=== PATIENT | male | born 1955 | race Caucasian/White ===

== ENCOUNTER 2018-01-18 09:00 | Outpatient (CLI) | payer OTHER, SELFPAY | END 2018-01-18 09:20 | PROVIDERS: PCP Emergency Medicine; Visit Provider Emergency Medicine | DX: R69 Illness, unspecified (principal) | CPT/HCPCS: 36415; 83036 ==

== ENCOUNTER 2018-01-18 09:26 | Outpatient (CLI) | payer OTHER, SELFPAY ==
[2018-01-18 11:36] LABS: Hemoglobin A1C 6.5 % (4.5-6.2)
== END 2018-01-18 09:46 ==
PROVIDERS: PCP Emergency Medicine; Visit Provider Emergency Medicine
DX: E11.9 Type 2 diabetes mellitus without complications (principal)
CPT/HCPCS: 36415; 83036

== ENCOUNTER 2018-03-26 13:21 | Outpatient (CLI) | payer OTHER, SELFPAY ==
--- NOTE | 2018-03-26 10:30 | DI.RAD_ITS ---
SYMPTOM/DIAGNOSIS: CHRONIC PAIN, ROTATOR CUFF SYNDROME, M75.100, H/O FALL RIGHT SHOULDER: Five views. No priors. Mild hypertrophic changes are seen at the acromioclavicular joint and at the greater tuberosity. The glenohumeral joint is well maintained. The bones are intact and normally mineralized. The soft tissues are unremarkable. IMPRESSION: Mild degenerative changes about the right shoulder.
== END 2018-03-26 13:41 ==
PROVIDERS: PCP Emergency Medicine; Visit Provider Emergency Medicine
DX: M75.101 Unspecified rotator cuff tear or rupture of right shoulder, not specified as traumatic (principal); G89.29 Other chronic pain; M19.011 Primary osteoarthritis, right shoulder; M25.511 Pain in right shoulder
CPT/HCPCS: 73030

== ENCOUNTER 2018-08-21 08:19 | Outpatient (CLI) | payer OTHER, SELFPAY ==
[2018-08-21 11:05] LABS: Anion Gap 12.3 mmol/L (3-11); BUN 14 mg/dL (7-18); CO2 22.7 mmol/L (21.0-32.0); CREATININE 1.02 mg/dL (0.70-1.30); Calcium 8.9 mg/dL (8.5-10.1); Chloride 101 mmol/L (98-107); Glucose 178 mg/dL (70-100); Potassium 4.5 mmol/L (3.5-5.1); Sodium 136 mmol/L (136-145)
[2018-08-21 11:18] LABS: Hemoglobin A1C 7.5 % (4.5-6.2)
== END 2018-08-21 08:39 ==
PROVIDERS: PCP Emergency Medicine; Visit Provider Emergency Medicine
DX: I10 Essential (primary) hypertension (principal); E11.9 Type 2 diabetes mellitus without complications
CPT/HCPCS: 36415; 80048; 83036

== ENCOUNTER 2018-09-01 09:04 | Emergency (ER) | payer OTHER, SELFPAY ==
[2018-09-01 09:13] VITALS: BP 144/85; PULSE 85; RESP 15; TEMP 36.5; O2SAT 98
[2018-09-01 09:19] LABS: Bilirubin Negative (Negative); Blood Moderate (Negative); Clarity Clear; Glucose 500 mg/dL (Negative); Ketones Negative (Negative); Leukocyte Esterase Negative (Negative); Nitrite Negative (Negative); Urobilinogen 0.2 EU/dL (Up TO 0.2); pH 5.5 (5-8)
[2018-09-01] MEDS: Normal Saline 1,000 ML 200 ML IV (09:20)
[2018-09-01 09:26] LABS: Bacteria Negative HPF (Negative); C & S Indicated? No; Casts Negative LPF (Negative); Crystals Negative HPF (Negative); Epithelial Cells Negative HPF (Negative); Mucus Negative (Negative); WBC Negative HPF (0-5)
--- NOTE | 2018-09-01 09:33 | DI.CT_ITS ---
SYMPTOM/DIAGNOSIS: PAIN RIGHT FLANK, SUDDEN LAST NIGHT, HEmATURIA RENAL COLIC CT: There is moderate right hydronephrosis secondary to a 2 mm stone in the distal right ureter. There is right perinephric stranding. No additional urinary tract calculi are seen. The bladder shows slight wall thickening and trabeculation. The prostate is enlarged. There are small bilateral fatty containing inguinal hernias. The liver shows fatty infiltration. The gallbladder, spleen, pancreas and adrenals are unremarkable. The appendix appears normal. There is no bowel dilatation or inflammatory change. The aorta is normal in diameter. IMPRESSION: Moderate right hydronephrosis secondary to a 2 mm stone in the distal right ureter.
--- NOTE | 2018-09-01 09:44 | W.ED.GENAD ---
Discharge Plan Disposition Patient Disposition: HOME Discharge Details Chief Complaint: FlankPain Clinical Impression: Right distal ureteral calculus, Hyperglycemia Primary Care Provider: Yasir James ED Provider: Anil Law Home Meds and New Rx's Prescriptions: New ondansetron 4 mg film 4 mg PO BID-TID PRN (Reason: nausea and vomiting) Qty: 10 RF: 0 Continued sildenafil [Viagra] 100 mg tablet 100 mg PO PRN Qty: 5 RF: 8 pravastatin [Pravachol] 20 mg tablet 20 mg PO DAILY Qty: 90 RF: 4 metformin 1,000 mg tablet 1,000 mg PO BID Qty: 180 RF: 3 OneTouch Ultra Test strip 1 ea Miscellaneous DAILY Qty: 90 RF: 3 Discharge Instructions Instructions: Kidney Stones (ED), Diabetic Hyperglycemia (ED) Additional Instructions: Please drink plenty of fluid to stay hydrated. Take nausea medicine as prescribed for nausea. Please take ibuprofen over the counter. Take 600mg by mouth every 6 hours as needed for pain. Please follow-up with urology. The CT imaging today noted enlargement of prostate - timely urology consultation is recommended. Call for an appointment. Please contact your primary care physician to arrange follow-up. Return to the ER for any worsening or new concerning symptoms. Referrals: Yasir James, [Primary Care Provider] - Albert Coleman MD [ [facility] STAFF PHYSICIAN] - Medical Decision Making 9:45 -- 62yo m with history of iug-jepqclm-bihruzogp diabetes here with sudden onset right flank pain. Patient with dry mucous membranes and concern for mild dehydration. Urinalysis reviewed and 10-20 RBCs present. Concern for renal stone. Consider other etiologies. Plan to obtain CT of the abdomen and pelvis/ Elevated glucose and urine noted. Plan to check chemistry to assess blood gluc level. Toradol 30 mg IV for pain. IV fluid bolus. 10:58 -- Labs reviewed: Hyperglycemia noted. He has no anion gap acidosis and no ketones in his urine. CT of the abdomen and pelvis interpreted by radiology: IMPRESSION: 1. 1.5 millimeter distal RIGHT ureteral calculus causes dilatation of the RIGHT ureter, and RIGHT collecting system. (2:103; 4:83) The RIGHT kidney is edematous and there is RIGHT perirenal stranding. 2. The prostate is enlarged, greater than 5 cm. Recommend urology consult. Dictated and Authenticated by: Raf Chaudhry MD. Patient was reassessed and was noted to have improvement of pain with Toradol. Plan is to discharge on ibuprofen and with a prescription for Zofran should he have worsening nausea. Patient was encouraged to follow-up with urology. I will have him call to schedule this appointment given the enlargement of prostate noted on CT. Patient was informed of abnormal blood test including hyperglycemia and plans to follow-up with his primary care physician. HPI General Mode of arrival: ambulatory. Date/Time Provider Initiated Documentation: 09/01/18 09:09. Limitations to Documentation: no limitations. Information obtained by: patient. HPI Narrative: 62-year-old male here with acute onset of right flank pain. Pain started last night at 2 AM. Pain is sharp. Pain is currently rated 6/10. Pain is localized to his right posterior lateral flank. No associated dysuria or hematuria. He does have some mild associated nausea. No abdominal pain. Patient has never had similar pain in the past. No recent trauma. Related Data Home Medications Medication Instructions Recorded Confirmed sildenafil 100 mg tablet 100 mg PO PRN #5 tab 01/18/18 09/01/18 metformin 1,000 mg tablet 1,000 mg PO BID #180 tab-cap 05/31/18 09/01/18 blood sugar diagnostic strips #90 strip 08/01/18 08/21/18 pravastatin 20 mg tablet 20 mg PO DAILY #90 tab 08/21/18 09/01/18 ondansetron 4 mg PO BID-TID PRN #10 each 09/01/18 Previous Rx's Medication Instructions Recorded sildenafil 100 mg tablet 100 mg PO PRN #5 tab 01/18/18 metformin 1,000 mg tablet 1,000 mg PO BID #180 tab-cap 05/31/18 blood sugar diagnostic strips #90 strip 08/01/18 pravastatin 20 mg tablet 20 mg PO DAILY #90 tab 08/21/18 ondansetron 4 mg PO BID-TID PRN #10 each 09/01/18 Allergies Allergy/AdvReac Type Severity Reaction Status Date / Time No Known Allergies Allergy Verified 09/01/18 09:18 General Stated Complaint: FlankPain CHANCE: 3 Review of Systems Review of Systems All systems reviewed & are unremarkable except as noted in HPI and below [facility] Surgical History Colonoscopy - IV Sedation (04/01/16) PROCEDURES Family History Mother No problems noted. 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 Pets and animals: Yes Pets and animals: cat(s) Duration: 30-45 minutes/day Frequency: daily Kati/Adventism: Baptism Special kati needs: No Do you feel safe at home: Yes Do you feel safe in your relationship?: Yes Exam Const General: cooperative and no acute distress HENMT Head: normocephalic Mouth: mucous membranes dry Eyes Conjunctivae: normal conjunctivae Sclera: normal sclerae Neck Neck: trachea midline and supple Resp Auscultation: clear to auscultation bilaterally, no rales, no rhonchi and no wheezes Cardio Jugular venous pressure: no JVD Rate: regular rate and not tachycardic Rhythm: regular rhythm GI Palpation: soft, not firm, no guarding, no masses, not rigid and nontender Skin General skin exam: no rashes or lesions noted Neuro General: alert, awake and tone normal Extrem General: no edema Psych Appearance: grossly normal Course Vital Signs Temperature 36.5 C 09/01/18 09:13 Pulse 85 09/01/18 09:13 Respiratory Rate 15 09/01/18 09:13 Blood Pressure 144/85 H 09/01/18 09:13 Pulse Oximetry 98 09/01/18 09:13 Temperature 36.5 C 09/01/18 09:13 Temperature Source Temporal Artery Scan 09/01/18 09:13 Pulse 85 09/01/18 09:13 Respiratory Rate 09/01/18 09:13 Respiratory Effort Non-Labored 09/01/18 09:17 Blood Pressure 144/85 H 09/01/18 09:13 Blood Pressure Position Supine 09/01/18 09:13 Pulse Oximetry 98 09/01/18 09:13 Oxygen Delivery Method Room Air 09/01/18 09:13 Oxygen Flow Rate 0 09/01/18 09:13 Pain Level 9 09/01/18 09:19 Lab/Test Results Lab/Test Results: Laboratory Tests Range/Units 09/01/18 09:20 Urine Color (Yellow) Yellow Urine Clarity Clear Urine pH (5-8) 5.5 Ur Specific [place] (1.005-1.025) 1.020 Urine Protein (Negative) mg/dL Negative Urine Ketones (Negative) mg/dL Negative Urine Blood (Negative) Moderate H Urine Nitrite (Negative) Negative Urine Bilirubin (Negative) Negative Urine Urobilinogen (Up TO 0.2) EU/dL 0.2 Ur Leukocyte Esterase (Negative) Negative Urine RBC (0-2) 10-20 H Urine WBC (0-5) HPF Negative Ur Epithelial Cells (Negative) HPF Negative Urine Crystals (Negative) HPF Negative Urine Bacteria (Negative) HPF Negative Urine Casts (Negative) LPF Negative Urine Mucus (Negative) Negative Ur Culture Indicated? No Urine Glucose (Negative) mg/dL 500 H
[2018-09-01] MEDS: Ketorolac 30 MG/ML VIAL IVP (09:47)
--- NOTE | 2018-09-01 09:47 | ED.GENADUL_ITS ---
Discharge Plan Disposition Patient Disposition: HOME Discharge Details Chief Complaint: FlankPain Clinical Impression: Right distal ureteral calculus, Hyperglycemia Primary Care Provider: Yasir James ED Provider: Anil Law Home Meds and New Rx's Prescriptions: New ondansetron 4 mg film 4 mg PO BID-TID PRN (Reason: nausea and vomiting) Qty: 10 RF: 0 Continued sildenafil [Viagra] 100 mg tablet 100 mg PO PRN Qty: 5 RF: 8 pravastatin [Pravachol] 20 mg tablet 20 mg PO DAILY Qty: 90 RF: 4 metformin 1,000 mg tablet 1,000 mg PO BID Qty: 180 RF: 3 OneTouch Ultra Test strip 1 ea Miscellaneous DAILY Qty: 90 RF: 3 Discharge Instructions Instructions: Kidney Stones (ED), Diabetic Hyperglycemia (ED) Additional Instructions: Please drink plenty of fluid to stay hydrated. Take nausea medicine as prescribed for nausea. Please take ibuprofen over the counter. Take 600mg by mouth every 6 hours as needed for pain. Please follow-up with urology. The CT imaging today noted enlargement of prostate - timely urology consultation is recommended. Call for an appointment. Please contact your primary care physician to arrange follow-up. Return to the ER for any worsening or new concerning symptoms. Referrals: Yasir James, [Primary Care Provider] - Albert Coleman MD [ [facility] STAFF PHYSICIAN] - Medical Decision Making 9:45 -- 62yo m with history of qpm-rvydbdu-cdmubxhbf diabetes here with sudden onset right flank pain. Patient with dry mucous membranes and concern for mild dehydration. Urinalysis reviewed and 10-20 RBCs present. Concern for renal stone. Consider other etiologies. Plan to obtain CT of the abdomen and pelvis/ Elevated glucose and urine noted. Plan to check chemistry to assess blood gluc level. Toradol 30 mg IV for pain. IV fluid bolus. 10:58 -- Labs reviewed: Hyperglycemia noted. He has no anion gap acidosis and no ketones in his urine. CT of the abdomen and pelvis interpreted by radiology: IMPRESSION: 1. 1.5 millimeter distal RIGHT ureteral calculus causes dilatation of the RIGHT ureter, and RIGHT collecting system. (2:103; 4:83) The RIGHT kidney is edematous and there is RIGHT perirenal stranding. 2. The prostate is enlarged, greater than 5 cm. Recommend urology consult. Dictated and Authenticated by: Raf Chaudhry MD. Patient was reassessed and was noted to have improvement of pain with Toradol. Plan is to discharge on ibuprofen and with a prescription for Zofran should he have worsening nausea. Patient was encouraged to follow-up with urology. I will have him call to schedule this appointment given the enlargement of prostate noted on CT. Patient was informed of abnormal blood test including hyperglycemia and plans to follow-up with his primary care physician. HPI General Mode of arrival: ambulatory . Date/Time Provider Initiated Documentation: 09/01/18 09:09 . Limitations to Documentation: no limitations . Information obtained by: patient . HPI Narrative: 62-year-old male here with acute onset of right flank pain. Pain started last night at 2 AM. Pain is sharp. Pain is currently rated 6/10. Pain is localized to his right posterior lateral flank. No associated dysuria or hematuria. He does have some mild associated nausea. No abdominal pain. Patient has never had similar pain in the past. No recent trauma. Related Data Home Medications Medication Instructions Recorded Confirmed sildenafil 100 mg tablet 100 mg PO PRN #5 tab 01/18/18 09/01/18 metformin 1,000 mg tablet 1,000 mg PO BID #180 tab-cap 05/31/18 09/01/18 blood sugar diagnostic strips #90 strip 08/01/18 08/21/18 pravastatin 20 mg tablet 20 mg PO DAILY #90 tab 08/21/18 09/01/18 ondansetron 4 mg PO BID-TID PRN #10 each 09/01/18 Previous Rx's Medication Instructions Recorded sildenafil 100 mg tablet 100 mg PO PRN #5 tab 01/18/18 metformin 1,000 mg tablet 1,000 mg PO BID #180 tab-cap 05/31/18 blood sugar diagnostic strips #90 strip 08/01/18 pravastatin 20 mg tablet 20 mg PO DAILY #90 tab 08/21/18 ondansetron 4 mg PO BID-TID PRN #10 each 09/01/18 Allergies Allergy/AdvReac Type Severity Reaction Status Date / Time No Known Allergies Allergy Verified 09/01/18 09:18 General Stated Complaint: FlankPain CHANCE: 3 Review of Systems Review of Systems All systems reviewed & are unremarkable except as noted in HPI and below [facility] Surgical History Colonoscopy - IV Sedation (04/01/16) PROCEDURES Family History Mother No problems noted. Father Heart disease Brother Diabetes Grandmother Neoplasm Social History Smoking/Tobacco Use Status: Never Alcohol Intake: current Alcohol Intake frequency: a few times a month Drug use: Never Substance use type: does not use current occupation: [employer] Pets and animals: Yes Pets and animals: cat(s) Duration: 30-45 minutes/day Frequency: daily Akti/Buddhist: Scientologist Special kati needs: No Do you feel safe at home: Yes Do you feel safe in your relationship?: Yes Exam Const General: cooperative and no acute distress HENMT Head: normocephalic Mouth: mucous membranes dry Eyes Conjunctivae: normal conjunctivae Sclera: normal sclerae Neck Neck: trachea midline and supple Resp Auscultation: clear to auscultation bilaterally, no rales, no rhonchi and no wheezes Cardio Jugular venous pressure: no JVD Rate: regular rate and not tachycardic Rhythm: regular rhythm GI Palpation: soft, not firm, no guarding, no masses, not rigid and nontender Skin General skin exam: no rashes or lesions noted Neuro General: alert, awake and tone normal Extrem General: no edema Psych Appearance: grossly normal Course Vital Signs Temperature 36.5 C 09/01/18 09:13 Pulse 85 09/01/18 09:13 Respiratory Rate 15 09/01/18 09:13 Blood Pressure 144/85 H 09/01/18 09:13 Pulse Oximetry 98 09/01/18 09:13 Temperature 36.5 C 09/01/18 09:13 Temperature Source Temporal Artery Scan 09/01/18 09:13 Pulse 85 09/01/18 09:13 Respiratory Rate 09/01/18 09:13 Respiratory Effort Non-Labored 09/01/18 09:17 Blood Pressure 144/85 H 09/01/18 09:13 Blood Pressure Position Supine 09/01/18 09:13 Pulse Oximetry 98 09/01/18 09:13 Oxygen Delivery Method Room Air 09/01/18 09:13 Oxygen Flow Rate 0 09/01/18 09:13 Pain Level 9 09/01/18 09:19 Lab/Test Results Lab/Test Results: Laboratory Tests Range/Units 09/01/18 09:20 Urine Color (Yellow) Yellow Urine Clarity Clear Urine pH (5-8) 5.5 Ur Specific [place] (1.005-1.025) 1.020 Urine Protein (Negative) mg/dL Negative Urine Ketones (Negative) mg/dL Negative Urine Blood (Negative) Moderate H Urine Nitrite (Negative) Negative Urine Bilirubin (Negative) Negative Urine Urobilinogen (Up TO 0.2) EU/dL 0.2 Ur Leukocyte Esterase (Negative) Negative Urine RBC (0-2) 10-20 H Urine WBC (0-5) HPF Negative Ur Epithelial Cells (Negative) HPF Negative Urine Crystals (Negative) HPF Negative Urine Bacteria (Negative) HPF Negative Urine Casts (Negative) LPF Negative Urine Mucus (Negative) Negative Ur Culture Indicated? No Urine Glucose (Negative) mg/dL 500 H
[2018-09-01 09:53] LABS: Absolute Basophil Count 0.01 k/cumm (0.0-0.2); Absolute Eosinophil Count 0.03 k/cumm (0.0-0.7); Absolute Lymphocyte Count 1.14 k/cumm (1.2-3.4); Absolute Monocyte Count 0.52 k/cumm (0.11-0.7); Absolute Neutrophil Count 4.65 k/cumm (1.2-6.7); Basophils % 0.2; Eosinophils % 0.5; HCT 39.7 % (40.0-50.0); HGB 13.4 g/dL (13.5-17.5); Mean Corp. HGB Concentration 33.8 g/dL (32.0-36.0); Mean Corpuscular Hemoglobin 28.9 pg (27.0-33.0); Mean Corpuscular Volume 85.6 fL (80-95); Mean Platelet Volume 11.8 fL (8.0-11.0); Monocytes % 8.2; Neutrophils % 73.1; Platelet Count 151 x1000/uL (130-400); RBC 4.64 m/cumm (4.50-6.00); RBC Distribution Width 12.6 % (11.8-14.1); White Blood Cell Count 6.35 k/cumm (4.4-10.8)
[2018-09-01 10:06] LABS: ALT 35 U/L (12-78); AST 14 U/L (15-37); Albumin 3.8 g/dL (3.4-5.0); Alkaline Phosphatase 69 U/L (46-116); Anion Gap 11.7 mmol/L (3-11); BUN 16 mg/dL (7-18); Bilirubin, Total 1.4 mg/dL (0.2-1.0); CO2 22.3 mmol/L (21.0-32.0); CREATININE 1.26 mg/dL (0.70-1.30); Chloride 100 mmol/L (98-107); Estimated GFR 58.38 (mL/min/1.73m2); Glucose 206 mg/dL (70-100); Potassium 4.6 mmol/L (3.5-5.1); Sodium 134 mmol/L (136-145); Total Protein 7.2 g/dL (6.4-8.2)
--- NOTE | 2018-09-01 10:55 | DI.VRAD_ITS ---
EXAM: CT Abdomen and Pelvis Without Contrast EXAM DATE/TIME: 09/01/2018 9:34 AM CLINICAL HISTORY: 62 years old, male; Signs and symptoms; Other: Pain right flank; Sudden onset last night; Hematuria TECHNIQUE: Imaging protocol: Axial computed tomography images of the abdomen and pelvis without contrast. Coronal and sagittal reformatted images were created and reviewed. Radiation optimization: All CT scans at this facility use at least one of these dose optimization techniques: automated exposure control; mA and/or kV adjustment per patient size (includes targeted exams where dose is matched to clinical indication); or iterative reconstruction. COMPARISON: No relevant prior studies available. FINDINGS: ABDOMEN: Liver: Hepatic steatosis Gallbladder and bile ducts: Normal. No calcified stones. No ductal dilation. Pancreas: Normal. No ductal dilation. Spleen: Normal. No splenomegaly. Adrenals: Normal. No mass. Kidneys and ureters: 1.5 millimeter distal RIGHT ureteral calculus causes dilatation of the RIGHT ureter, and RIGHT collecting system. (2:103; 4:83) The RIGHT kidney is edematous and there is RIGHT perirenal stranding. Stomach and bowel: Normal. No obstruction. No mucosal thickening. Appendix: Normal appendix PELVIS: Bladder: Unremarkable as visualized. Reproductive: The prostate is enlarged, greater than 5 cm. ABDOMEN and PELVIS: Intraperitoneal space: Normal. No free air. No significant fluid collection. 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 Soft tissues: Unremarkable. Vasculature: Normal. No abdominal aortic aneurysm. Lymph nodes: Normal. No enlarged lymph nodes. Other findings: Left pararenal cyst IMPRESSION: 1. 1.5 millimeter distal RIGHT ureteral calculus causes dilatation of the RIGHT ureter, and RIGHT collecting system. (2:103; 4:83) The RIGHT kidney is edematous and there is RIGHT perirenal stranding. 2. The prostate is enlarged, greater than 5 cm. Recommend urology consult. Dictated and Authenticated by: Raf Chaudhry MD. Ordering:MONICO Ma MD
[2018-09-01 11:18] VITALS: BP 118/72; PULSE 80; RESP 15; TEMP 36.6; O2SAT 98
[2018-09-01 11:28] VITALS: BP 118/72; PULSE 80; RESP 15; TEMP 36.6; O2SAT 98
== END 2018-09-01 11:28 | disposition home or self-care (01) ==
PROVIDERS: Emergency Provider Student in an Organized Health Care Education/Training Program; PCP Emergency Medicine
DX: N20.1 Calculus of ureter (principal); E11.65 Type 2 diabetes mellitus with hyperglycemia; Z79.4 Long term (current) use of insulin; N40.0 Benign prostatic hyperplasia without lower urinary tract symptoms
CPT/HCPCS: 80053; 96361; 96374; 99284; 74176; 81003; 81015; 85025; J1885

== ENCOUNTER 2018-09-25 08:06 | Outpatient (CLI) | payer OTHER, SELFPAY ==
[2018-09-26 08:59] LABS: PSA, Screening 0.8 ng/ml (0-4.5)
== END 2018-09-25 08:26 ==
PROVIDERS: PCP Emergency Medicine; Visit Provider Emergency Medicine
DX: N40.0 Benign prostatic hyperplasia without lower urinary tract symptoms (principal); Z12.5 Encounter for screening for malignant neoplasm of prostate
CPT/HCPCS: 36415; 84153

== ENCOUNTER 2018-09-25 08:17 | Outpatient (CLI) | payer OTHER, SELFPAY ==
--- NOTE | 2018-09-25 14:00 | DI.US_ITS ---
SYMPTOMS/DIAGNOSIS: RIGHT KIDNEY STONE, N20.0 RENAL ULTRASOUND: Recent CT of 09/01/18 showed an obstructing stone of the distal right ureter with resultant right hydronephrosis. No hydronephrosis identified on today's examination on either side. Urinary bladder is unremarkable in appearance. No evidence of nephrolithiasis. Small peripelvic cysts are noted in the left kidney. Urinary bladder is unremarkable in appearance with prevoid and postvoid urinary bladder volume measurements 221 cc and 23 cc, respectively. CONCLUSION: Negative renal ultrasound. Resolution of previously noted right hydronephrosis.
== END 2018-09-25 08:37 ==
PROVIDERS: PCP Emergency Medicine; Visit Provider Emergency Medicine
DX: N20.0 Calculus of kidney (principal)
CPT/HCPCS: 76770

== ENCOUNTER 2018-12-21 07:00 | Outpatient (CLI) | payer OTHER, SELFPAY ==
[2018-12-21 10:53] LABS: Hemoglobin A1C 7.6 % (4.5-6.2)
== END 2018-12-21 07:20 ==
PROVIDERS: PCP Emergency Medicine; Visit Provider Emergency Medicine
DX: E11.9 Type 2 diabetes mellitus without complications (principal)
CPT/HCPCS: 36415; 83036

== ENCOUNTER 2019-10-09 03:58 | Outpatient (CLI) | payer OTHER, SELFPAY ==
[2019-10-09 07:58] LABS: Hemoglobin A1C 7.6 % (3.8-5.6)
[2019-10-09 08:36] LABS: Anion Gap 12.9 mmol/L (3-11); BUN 13 mg/dL (7-18); CO2 23.1 mmol/L (21.0-32.0); CREATININE 1.14 mg/dL (0.70-1.30); Calcium 8.8 mg/dL (8.5-10.1); Chloride 101 mmol/L (98-107); Glucose 191 mg/dL (74-106); Potassium 4.5 mmol/L (3.5-5.1); Sodium 137 mmol/L (136-145)
[2019-10-09 09:28] LABS: Calculated LDL 101 mg/dL (<100); Cholesterol 210 mg/dL (<200); HDL Cholesterol 36 mg/dL (40-60); Triglyceride 365 mg/dL (<150)
== END 2019-10-09 04:18 ==
PROVIDERS: PCP Emergency Medicine; Visit Provider Emergency Medicine
DX: E78.5 Hyperlipidemia, unspecified (principal); I10 Essential (primary) hypertension; E11.9 Type 2 diabetes mellitus without complications
CPT/HCPCS: 36415; 80048; 80061; 83036

== ENCOUNTER 2020-01-02 10:22 | Outpatient (CLI) | payer OTHER, SELFPAY ==
--- NOTE | 2020-01-02 09:15 | DI.RAD_ITS ---
EXAM: XR KNEE RT 3V AP,LAT,RUPERT CLINICAL HISTORY: eval R knee medial pain. TECHNIQUE: 2D digital imaging was performed. COMPARISON: CR CHEST 2 VIEWS PA,LAT from 07/11/2012 FINDINGS: BONES: No acute fracture is present. No bony destructive lesion is seen. JOINTS: The knee is normally aligned. No joint effusion is seen. SOFT TISSUE: Normal. IMPRESSION: Unremarkable radiographs of the right knee. DATA REPOSITORY: RADIATION DOSE DELIVERED:
== END 2020-01-02 10:42 ==
PROVIDERS: PCP Emergency Medicine; Referring Provider Emergency Medicine; Visit Provider Student in an Organized Health Care Education/Training Program
DX: M25.561 Pain in right knee (principal)
CPT/HCPCS: 73562

== ENCOUNTER 2020-01-27 00:40 | Outpatient (CLI) | payer OTHER, SELFPAY ==
--- NOTE | 2020-01-27 14:35 | DI.MRI_ITS ---
EXAM: MR LOWER JOINT RT WO CLINICAL HISTORY: RT KNEE PAIN, INJURY,M25.561 TECHNIQUE: Multiplanar multisequence MRI was performed.. COMPARISON: No exams were available for comparison FINDINGS: MR examination of the knee was performed according to the usual protocol. There is a small knee joint effusion. There is Lopes's cyst measuring up to about 1 x 4 cm in diamet er. No significant bony signal abnormality seen. Medial tibiofemoral joint: The articular cartilage of the femur and tibia appears well maintained. T he meniscus and attachments appear intact. The medial collateral ligament appears intact. No director of category management omedial corner injury seen. Lateral tibiofemoral joint: The articular cartilage of the femur and tibia peers well maintained. Th e meniscus and attachments appear intact except for mildly abnormal signal in the posterior horn of l ateral meniscus.. The lateral collateral ligament complex and posterolateral corner structures appea r intact. Patellofemoral joint and extensor mechanism: The articular cartilage of the patellofemoral joint appe ars intact. The superior and inferior patellar fat pads appear normal with no signal abnormality. The quadriceps tendon and patellar tendon appear intact with no evidence of a tear or significant earle ma. The medial and lateral retinacula appear intact. Cruciate ligaments: Cruciate ligaments and attachments appear normal with no evidence of a tear. The re is small loculated cyst which lies posterior to the femoral attachment of the posterior cruciate l igament, no signal abnormality seen in the posterior cruciate. Tibiofibular joint: No specific abnormality involving the tibiofibular joint. IMPRESSION: Small knee joint effusion, small Lopes's cyst. No evidence of significant internal derangement. DATA REPOSITORY:
== END 2020-01-27 01:00 ==
PROVIDERS: PCP Emergency Medicine; Visit Provider Student in an Organized Health Care Education/Training Program
DX: M25.461 Effusion, right knee (principal); M71.21 Synovial cyst of popliteal space [Baker], right knee
CPT/HCPCS: 73721

== ENCOUNTER 2020-06-26 16:53 | Outpatient (REF) | payer OTHER, SELFPAY ==
[2020-06-26 13:59] LABS: Hemoglobin A1C 7.9 % (<5.7)
[2020-06-26 15:07] LABS: Microalb ug/mg Crea 9.1 ug/mg Cr
[2020-06-26 15:09] LABS: BUN 11 mg/dL (7-18); Calcium 8.6 mg/dL (8.5-10.1); Calculated LDL 119 mg/dL (<100); Chloride 102 mmol/L (98-107); Cholesterol 201 mg/dL (<200); Glucose 209 mg/dL (74-106); HDL Cholesterol 47 mg/dL (40-60); Potassium 4.5 mmol/L (3.5-5.1); Sodium 138 mmol/L (136-145); Triglyceride 177 mg/dL (<150)
== END 2020-06-26 16:54 | disposition home or self-care (01) ==
LOC: LBN 16:53
PROVIDERS: PCP Emergency Medicine; Visit Provider Emergency Medicine
DX: I10 Essential (primary) hypertension (principal); E11.9 Type 2 diabetes mellitus without complications
CPT/HCPCS: 80048; 80061; 82043; 82570; 83036

== ENCOUNTER 2020-06-30 01:19 | Outpatient (CLI) | payer OTHER, SELFPAY ==
--- NOTE | 2020-06-30 06:30 | DI.NM_ITS ---
APPROVED REPORT Exam: Exercise Treadmill Patient Location: Out-Patient Room/Bed: Stress Nurse: Minoo Wolf RN Ordering Provider:SABIHA MEZA, Contact Number: [phone] BMI: 30.68 Baseline Rhythm: Sinus Rhythm Indications: CHEST PAIN, SHORTNESS OF BREATH Medical History Medical History: Chest pain, chronic fatigue syndrome, DM, HLD Cardiac Medications: Pravastatin, Metformin, ASA. Allergies: No known drug allergies Cardiac Risk Factors: Hyperlipidemia, Diabetes (non-insulin), Obesity Previous Cardiac Procedures: None. Pretest Chest Pain Characteristics: No chest pain Exercise History: Sedentary Physical Disabilities: None. Lung Sounds: Clear to auscultation Heart Sounds: Regular Stress Test Details Test: Exercise stress testing was performed using a Gaurav protocol. Nuclear Acquisition: Rest Tc-99m/Stress Tc-99m 1 day Rest Isotope: Tc-99m Sestamibi. Dose: 10.2 Date: 06/30/20 Injection Time: 0930 Stress Isotope: Tc-99m Sestamibi. Dose: 31.5 Date: 06/30/20 Injection Time: 1045 HR Resting HR Supine: 91 bpm Max Heart Rate (APMHR): 158 bpm Resting HR Standin bpm Target HR (85% APMHR): 134 bpm Max HR Achieved: 156 bpm % of APMHR: 98 Recovery HR: 106 bpm HR response to stress: Normal HR response to stress BP Resting BP Supine: 136/88 mmHg Resting BP Standin/86 mmHg Max BP: 188/70 mmHg Recovery BP: 140/78 mmHg BP response to stress: Normal blood pressure response to stress. ECG Resting ECG: Sinus Rhythm Ectopy: None. Stress ECG: Sinus Tachycardia ST Change: No significant ST segment changes noted Arrhythmia: None Recovery ECG: Sinus Tachycardia Recovery ST Change: No significant ST segment changes noted Recovery Arrhythmia: None Clinical Reason for Termination: Dyspnea, Fatigue Stress Symptoms: Dyspnea Exercise duration: 6 min48 sec Highest Stage Reached: Stage 3: 3.4 mph at 14% grade. Exercise capacity: 8.3 METs Rate Pressure Product: [id number] Stress ECG Conclusion 1. The resting electrocardiogram showed borderline left axis deviation 2. Patient exercised on the Gaurav protocol and completed a workload of 8.3 METS, limited by shortness of breath 3. Normal heart rate and blood pressure response to exercise. The patient achieved 98% of predicted heart rate for age 4. Electrocardiographically there was no evidence of myocardial ischemia 5. No dysrhythmias were observed Stress Test Summary STAGE Time (mins) Speed (mph) Grade (%) HR BP SYMPTOMS METS Supine 91 136/88 Standing 94 140/86 1 3 1.7 10 126 152/74 4.6 2 6 2.5 12 145 170/72 7 3 9 3.4 14 SpO2 97% 10.2 1 min recovery 136 188/70 3 min recovery 110 162/74 6 min recovery 106 140/78 MPI Conclusion Normal myocardial perfusion without evidence of ischemia or prior infarction. EF reported to be 44% Radiologist Interpretation Radiologist Interpretation by: Darius Garcia MD Interpretation Date/Time: 06/30/2020 13:00:28
== END 2020-06-30 01:39 ==
PROVIDERS: PCP Emergency Medicine; Visit Provider Emergency Medicine
DX: R07.9 Chest pain, unspecified (principal); R06.02 Shortness of breath; E78.5 Hyperlipidemia, unspecified; E11.9 Type 2 diabetes mellitus without complications; E66.9 Obesity, unspecified
CPT/HCPCS: 78452; 93017

== ENCOUNTER 2021-01-15 07:49 | Emergency (ER) | payer OTHER, SELFPAY ==
[2021-01-15 08:03] VITALS: BP 153/86; PULSE 79; RESP 18; TEMP 36.8; O2SAT 99
--- NOTE | 2021-01-15 08:27 | ED.GENADUL_ITS ---
Discharge Plan Disposition Patient Disposition: HOME Condition: Stable Discharge Details Clinical Impression: Ureterolithiasis Primary Care Provider: Jose Mccray ED Provider: Ivet Sawyer Home Meds and New Rx's Prescriptions: New oxycodone 5 mg capsule 5 mg PO Q8H PRNQty: 7 RF: 0 ondansetron HCl [Zofran] 4 mg tablet 4 mg PO Q8H PRNQty: 10 RF: 0 tamsulosin [Flomax] 0.4 mg capsule 0.4 mg PO QHS Qty: 7 RF: 0 Continued pravastatin 40 mg tablet 40 mg PO DAILY Qty: 90 RF: 3 (DME) OneTouch Ultra Test strip 1 ea Miscellaneous DAILY Qty: 90 RF: 3 sildenafil [Viagra] 100 mg tablet 100 mg PO PRN Qty: 5 RF: 8 metformin 1,000 mg tablet 1,000 mg PO BID Qty: 180 RF: 3 Discharge Instructions Additional Instructions: Stay hydrated Take your Flomax as prescribed Oxycodone can make you constipated, take MiraLAX and prune while on this Follow-up with Dr. Coleman urology and strain your urine Follow-up tomorrow Please return with fever, chills, difficulty urinating, burning pain with urination, or with any new or worsening complaints Referrals: Albert Coleman MD [ [facility] STAFF PHYSICIAN] - Medical Decision Making Patient appears well, his pain is much improved after IV Tylenol CT shows 2 small 1 mm stones at UVJ with hydronephrosis, moderate to severe Producing urine, stable vitals and lab, mild hypertension Request discharge home at this time, we will strain his urine Placed on Flomax Zofran Small amount of oxycodone, risk of addiction discussed No evidence of secondary infection Referral to urology supplied Medical Records Medical records reviewed: Yes I reviewed the patient's medical records. Lab Data Lab results reviewed: Yes I reviewed the patient's lab results. HPI General Mode of arrival: ambulatory . Date/Time Provider Initiated Documentation: 01/15/21 08:08 . Limitations to Documentation: no limitations . Information obtained by: patient . HPI Narrative: This 65-year-old gentleman with history of diabetes, hypertension, hyperlipidemia presents with right flank pain for the past 3 days. History of similar pain ureteral lithiasis in the past. Denies any fever or chills denies any dysuria or frequency. Denies any abdominal discomfort. Intermittent nausea without vomiting reportedly. Denies any additional complaints at this time. Denies any exacerbating or alleviating factors. Describes the pain as sharp. Related Data Home Medications Medication Instructions Recorded Confirmed blood sugar diagnostic #90 strip 08/01/18 03/27/20 sildenafil 100 mg tablet 100 mg PO PRN #5 tab 04/09/19 01/15/21 metformin 1,000 mg tablet 1,000 mg PO BID #180 tab-cap 04/23/20 01/15/21 pravastatin 40 mg tablet 40 mg PO DAILY #90 tab 07/24/20 01/15/21 ondansetron HCl [Zofran] 4 mg PO Q8H PRN #10 tab 01/15/21 oxycodone 5 mg PO Q8H PRN #7 cap 01/15/21 tamsulosin [Flomax] 0.4 mg PO QHS #7 cap 01/15/21 Previous Rx's Medication Instructions Recorded blood sugar diagnostic #90 strip 08/01/18 sildenafil 100 mg tablet 100 mg PO PRN #5 tab 04/09/19 metformin 1,000 mg tablet 1,000 mg PO BID #180 tab-cap 04/23/20 pravastatin 40 mg tablet 40 mg PO DAILY #90 tab 07/24/20 ondansetron HCl [Zofran] 4 mg PO Q8H PRN #10 tab 01/15/21 oxycodone 5 mg PO Q8H PRN #7 cap 01/15/21 tamsulosin [Flomax] 0.4 mg PO QHS #7 cap 01/15/21 Allergies Allergy/AdvReac Type Severity Reaction Status Date / Time No Known Allergies Allergy Verified 01/15/21 08:07 General Stated Complaint: Urinary CHANCE: 3 Review of Systems All systems reviewed & are unremarkable except as noted in HPI and below PFSH Medical History (Updated 01/15/21 @ 10:56 by TAMERA Mejia) BPH w urinary obs/LUTS Chest pain normal MPI 08/07 Chronic fatigue syndrome (01/18/12) Diabetes mellitus (07/24/13) Hiatal hernia (02/16/01) Hyperlipidemia (09/24/12) Overweight (09/24/12) Parastomal hernia Rotator cuff syndrome Corticosteroid injection: 04/23/18 Surgical History Colonoscopy - IV Sedation (04/01/16) PROCEDURES [facility] [place] DR. MANUEL; ANKLE SURGERY 07/28 Family History Mother No problems noted. Father Heart disease Brother Diabetes Grandmother Neoplasm COLON Social History Smoking/Tobacco Use Status: Never Smoking risk assessment performed?: Yes Alcohol Intake: current Alcohol Intake frequency: a few times a month Drug use: Never Substance use type: does not use current occupation: [employer] Pets and animals: Yes Pets and animals: cat(s) Duration: 30-45 minutes/day Frequency: daily Kati/Hoahaoism: Pentecostal Special kati needs: No Do you feel safe at home: Yes Do you feel safe in your relationship?: Yes Exam Const General: cooperative, comfortable and no acute distress HENMT Mouth: oral mucosae normal Eyes Pupils: PERRL Resp Effort & Inspection: normal respiratory effort Cardio Rate: regular rate GI Inspection: normal to inspection Other: Nontender abdominal exam right CVA tenderness No abdominal bruit or pulsatile mass Skin General skin exam: no rashes or lesions noted Neuro General: patient alert and patient oriented x3 Course Vital Signs Vital signs: Vital Signs Temperature 36.8 C 01/15/21 08:03 Pulse 79 01/15/21 08:03 Respiratory Rate 18 01/15/21 08:03 Blood Pressure 153/86 H 01/15/21 08:03 Pulse Oximetry 99 01/15/21 08:03 Temperature 36.8 C 01/15/21 08:03 Pulse 79 01/15/21 08:03 Respiratory Rate 18 01/15/21 08:03 Respiratory Effort 01/15/21 08:06 Blood Pressure 153/86 H 01/15/21 08:03 Blood Pressure Position Sitting 01/15/21 08:03 Pulse Oximetry 99 01/15/21 08:03 Oxygen Delivery Method Room Air 01/15/21 08:03 Oxygen Flow Rate 0 01/15/21 08:03 Pain Level 6 01/15/21 08:03
[2021-01-15] MEDS: Normal Saline 1,000 ML 1000 ML IV (08:31)
[2021-01-15 08:37] LABS: Abs Immature Grans 0.02 10^3/uL (0.0-0.06); Absolute Basophil Count 0.02 10^3/uL (0.0-0.2); Absolute Eosinophil Count 0.07 10^3/uL (0.0-0.7); Absolute Lymphocyte Count 1.04 10^3/uL (1.2-3.4); Absolute Monocyte Count 0.53 10^3/uL (0.1-0.8); Absolute Neutrophil Count 4.04 10^3/uL (1.2-6.7); Basophils % 0.3; Eosinophils % 1.2; HCT 40.1 % (40.0-50.0); HGB 12.9 g/dL (13.5-17.5); Immature Grans % 0.3; Lymphocytes % 18.2; MCH 26.8 pg (27.0-33.0); MCHC 32.2 % (32.0-36.0); MCV 83.2 fL (80-95); MPV 11.8 fL (8.0-11.0); Monocytes % 9.3; Neutrophils % 70.7; Nucleated RBC 0 %; Platelet Count 166 10^3/uL (130-400); RBC 4.82 10^6/uL (4.36-5.78); WBC 5.72 10^3/uL (4.4-10.8)
[2021-01-15 08:38] LABS: Bilirubin Negative (Negative); Blood Large (Negative); Clarity Clear (Clear); Glucose >=1000 mg/dL (Negative); Ketones 15 mg/dL (Negative); Leukocyte Esterase Negative (Negative); Nitrite Negative (Negative); Specific Gravity >= 1.030 (1.005-1.025); Urobilinogen 0.2 EU/dL (Up TO 0.2); pH 5.5 (5-8)
[2021-01-15 08:46] LABS: Bacteria Negative HPF (Negative); Casts Negative LPF (Negative); Crystals Rare Calcium Oxalate HPF (Negative); Epithelial Cells Rare HPF (Negative); Mucus Negative (Negative); RBC 20-50 HPF (0-2); WBC 0-2 HPF (0-5)
[2021-01-15 08:47] LABS: C & S Indicated? No
[2021-01-15 08:52] LABS: ALT 32 U/L (16-63); AST 16 U/L (15-37); Albumin 3.7 g/dL (3.4-5.0); Alkaline Phosphatase 62 U/L (46-116); Anion Gap 11.1 mmol/L (3-11); BUN 10 mg/dL (7-18); Bilirubin, Total 1.3 mg/dL (0.2-1.0); CO2 22.9 mmol/L (21.0-32.0); Calcium 8.9 mg/dL (8.5-10.1); Chloride 106 mmol/L (98-107); Glucose 254 mg/dL (74-106); Lipase 125 U/L (73-393); Potassium 4.2 mmol/L (3.5-5.1); Sodium 140 mmol/L (136-145); Total Protein 6.8 g/dL (6.4-8.2)
[2021-01-15] MEDS: ACETAMINOPHEN 1,000 MG/100 ML BTL 400 MG IVPB (09:01)
[2021-01-15] MEDS: Omnipaque 350 MG/ML 100 ML BTL IJ (10:08)
[2021-01-15] MEDS: Normal Saline - Diluent 50 ML VIAL IV (10:08)
[2021-01-15] MEDS: Normal Saline Flush 10 ML SYR IVP (10:09)
--- NOTE | 2021-01-15 10:10 | DI.CT_ITS ---
Exam(s) CT ABDOMEN PELVIS W EXAM: CT ABDOMEN PELVIS W CLINICAL HISTORY: right flank pain TECHNIQUE: COMPARISON: CT CT renal colic wo from 09/01/2018 FINDINGS: CT examination of the abdomen and pelvis was performed with bolus infusion of 100 cc of Omnipaque 350 . Images obtained through the lung bases are unremarkable. The liver appears normal with no evidence of a focal mass. Spleen is unremarkable in appearance.. Gallbladder and bile ducts are unremarkable. Pancreas is unremarkable in appearance. Adrenals appear normal bilaterally. The left kidney has a normal appearance with no evidence of hydronephrosis, nephrolithiasis, renal ma ss. Right kidney is moderately hydronephrotic and there is hydroureter to the level of the ureterovesical junction where there are 2 small stones causing obstruction, these each measure 1-2 millimeters in d iameter. There is a small perinephric right fluid collection period there is also a nonobstructing r ight renal calculus noted. Unremarkable bladder. There is no evidence of abdominal or pelvic adenopathy. Abdominal aorta is of normal diameter and no abnormality is seen involving major visceral branches.. Appendix is normal. No evidence diverticulitis or bowel obstruction. No significant abdominal wall hernia seen. The left kidney has normal appearance Impression: There are two 1-2 millimeter in diameter stones at the ureterovesical junction on the right causing m oderate hydronephrosis and hydroureter. A nonobstructing right renal calculus is also noted. RADIATION DOSE DELIVERED: 1,091.14mGy.cm Total DLP 1,091.14mGy.cm DLP 1,091.14mGy.cm Total DLP 20.05mGy CTDIvol DATA REPOSITORY: All CT scans at this facility are submitted to the National Radiology Data Registry (NRDR) Dose Index Registry (DIR) with the [employer] (ACR). RADIATION OPTIMIZATION: All CT scans at this facility use at least one of these dose optimization te chniques: automated exposure control; mA and/or kV adjustment per patient size (includes targeted exa ms where dose is matched to clinical indication); or iterative reconstruction.
[2021-01-15] MEDS: Ketorolac 15 MG/ML VIAL IVP (10:58)
[2021-01-15 11:07] VITALS: BP 153/86; PULSE 79; RESP 18; TEMP 36.8; O2SAT 99
--- NOTE | 2021-01-15 11:10 | NUR.NOTE ---
Nursing Note: Referral faxed to [facility] Urology for follow up of kidney stones. Mary Grace Kohler
== END 2021-01-15 11:07 | disposition home or self-care (01) ==
PROVIDERS: Emergency Provider Physician Assistant; PCP Family Medicine
DX: N13.2 Hydronephrosis with renal and ureteral calculous obstruction (principal); N13.4 Hydroureter; R11.0 Nausea; Z87.442 Personal history of urinary calculi
CPT/HCPCS: 36415; 80053; 83690; 96361; 96365; 96375; 99284; 74177; 81003; 81015; 85025; J0131; J1885; J3490

== ENCOUNTER 2021-02-18 16:06 | Outpatient (REF) | payer OTHER, SELFPAY ==
[2021-02-20 17:18] LABS: Source: Passed Stone
== END 2021-02-18 16:07 | disposition home or self-care (01) ==
LOC: LBN 16:06
PROVIDERS: PCP Family Medicine; Visit Provider Nurse Practitioner Gerontology
DX: N20.0 Calculus of kidney (principal)
CPT/HCPCS: 82365

== ENCOUNTER 2021-07-06 10:12 | Outpatient (CLI) | payer OTHER, SELFPAY ==
--- NOTE | 2021-07-06 09:30 | DI.RAD_ITS ---
Exam(s) XR FOOT RT COMPLETE EXAM: XR FOOT RT COMPLETE CLINICAL HISTORY: ? foot/ toe fracture - Contusion of rt foot S90.31XA. TECHNIQUE: 2D digital imaging was performed. COMPARISON: CR LEFT HEEL (OS CALCIS) from 11/20/2009 FINDINGS: 3 views There is a fracture of the distal phalanx of the great toe, mildly comminuted but not displaced. The fracture does not appear to violate the interphalangeal joint surface. No other fractures identifie d. There is no diastasis of the Lisfranc joint. Incidentally noted are 3 small calcific densities posterior to the ankle joint which may be loose bod ies or possibly a variant of os trigonum. IMPRESSION: Fracture of the distal phalanx of the great toe with minimal displacement. DATA REPOSITORY: RADIATION DOSE DELIVERED:
== END 2021-07-06 10:32 ==
PROVIDERS: PCP Family Medicine; Visit Provider Nurse Practitioner
DX: S90.31XA Contusion of right foot, initial encounter (principal); S92.421A Displaced fracture of distal phalanx of right great toe, initial encounter for closed fracture
CPT/HCPCS: 73630

== ENCOUNTER 2021-10-26 03:36 | Outpatient (CLI) | payer OTHER, SELFPAY ==
[2021-10-26 12:57] LABS: CREATININE 1.1 mg/dL (0.70-1.30); Calculated LDL 137 mg/dL (<100); Cholesterol 227 mg/dL (<200); HDL Cholesterol 47 mg/dL (40-60); Potassium 4.9 mmol/L (3.5-5.1); Triglyceride 215 mg/dL (<150)
== END 2021-10-26 03:37 | disposition home or self-care (01) ==
LOC: LOS 03:36
PROVIDERS: PCP Family Medicine; Visit Provider Family Medicine
DX: I10 Essential (primary) hypertension (principal); E78.5 Hyperlipidemia, unspecified; R73.9 Hyperglycemia, unspecified
CPT/HCPCS: 36415; 80061; 82565; 83036; 84132

== ENCOUNTER 2022-06-27 12:13 | Outpatient (REF) | payer OTHER, SELFPAY ==
[2022-06-27 15:30] LABS: COMMENT (LAB VIEW ONLY) 83.14 mg/dL; Microalb ug/mg Crea 9.5 ug/mg Cr
== END 2022-06-27 12:14 | disposition home or self-care (01) ==
LOC: LBN 12:13
PROVIDERS: PCP Family Medicine; Visit Provider Family Medicine
DX: E11.9 Type 2 diabetes mellitus without complications (principal)
CPT/HCPCS: 82043; 82570

== ENCOUNTER 2022-11-28 01:55 | Outpatient (CLI) | payer MEDICARE, OTHER, SELFPAY ==
[2022-11-28 16:44] LABS: HCT 45.3 % (40.0-50.0); HGB 15.3 g/dL (13.5-17.5); MCH 29.2 pg (27.0-33.0); MCHC 33.8 % (32.0-36.0); MCV 87 fL (80-95); MPV 11.1 fL (8.0-11.0); Platelet Count 159 10^3/uL (130-400); RBC 5.24 10^6/uL (4.36-5.78); RDW 12.8 % (11.8-14.1); WBC 7.11 10^3/uL (4.4-10.8)
[2022-11-28 17:19] LABS: Anion Gap 10.5 mmol/L (3-11); BUN 16 mg/dL (7-18); CO2 22.5 mmol/L (21.0-32.0); Calcium 9.3 mg/dL (8.5-10.1); Calculated LDL 66 mg/dL (<100); Chloride 103 mmol/L (98-107); Cholesterol 148 mg/dL (<200); Estimated GFR 83.52 (mL/min/1.73m2); Glucose 130 mg/dL (74-106); HDL Cholesterol 60 mg/dL (40-60); Potassium 4.3 mmol/L (3.5-5.1); Sodium 136 mmol/L (136-145); Triglyceride 111 mg/dL (<150)
[2022-11-29 20:19] LABS: PSA, Screening 0.7 ng/mL (<=4.5)
== END 2022-11-28 01:56 | disposition home or self-care (01) ==
LOC: LBO 01:56
PROVIDERS: Nurse Practitioner Family; PCP Family Medicine; Visit Provider Family Medicine
DX: E11.9 Type 2 diabetes mellitus without complications (principal); E78.5 Hyperlipidemia, unspecified; N13.8 Other obstructive and reflux uropathy; N40.1 Benign prostatic hyperplasia with lower urinary tract symptoms; N52.9 Male erectile dysfunction, unspecified; Z00.00 Encounter for general adult medical examination without abnormal findings; K43.5 Parastomal hernia without obstruction or gangrene; R07.9 Chest pain, unspecified
CPT/HCPCS: 36415; 80048; 80061; 84153; 85027

== ENCOUNTER → 2023-02-27 14:54 | Outpatient (BNVA) | payer MEDICARE, OTHER, SELFPAY | PROVIDERS: PCP Family Medicine; Visit Provider Nurse Practitioner Gerontology | DX: N20.0 Calculus of kidney (principal); N52.9 Male erectile dysfunction, unspecified | CPT/HCPCS: 99213 ==

== ENCOUNTER 2023-09-05 09:03 | Outpatient (REF) | payer MEDICARE, OTHER, SELFPAY ==
[2023-09-05 12:53] LABS: COMMENT (LAB VIEW ONLY) 69.92 mg/dL; Microalb ug/mg Crea 8.3 ug/mg Cr
== END 2023-09-05 09:04 | disposition home or self-care (01) ==
LOC: LBN 09:03
PROVIDERS: PCP Family Medicine; Visit Provider Nurse Practitioner Family
DX: E11.9 Type 2 diabetes mellitus without complications (principal)
CPT/HCPCS: 82043; 82570

== ENCOUNTER 2024-01-08 02:15 | Outpatient (CLI) | payer MEDICARE, OTHER, SELFPAY ==
[2024-01-08 18:55] LABS: Anion Gap 12.6 mmol/L (3-11); BUN 13 mg/dL (7-18); CO2 24.4 mmol/L (21.0-32.0); Calcium 9.4 mg/dL (8.5-10.1); Calculated LDL 75 mg/dL (<100); Chloride 105 mmol/L (98-107); Cholesterol 158 mg/dL (<200); Estimated GFR 83.01 (mL/min/1.73m2); Glucose 143 mg/dL (74-106); HDL Cholesterol 57 mg/dL (40-60); Potassium 4.3 mmol/L (3.5-5.1); Sodium 142 mmol/L (136-145); Triglyceride 132 mg/dL (<150)
== END 2024-01-08 02:16 | disposition home or self-care (01) ==
LOC: LBO 02:15
PROVIDERS: PCP Family Medicine; Visit Provider Nurse Practitioner Family
DX: Z00.00 Encounter for general adult medical examination without abnormal findings (principal); E78.5 Hyperlipidemia, unspecified; E11.9 Type 2 diabetes mellitus without complications; E66.3 Overweight; N40.1 Benign prostatic hyperplasia with lower urinary tract symptoms; N13.8 Other obstructive and reflux uropathy; N52.9 Male erectile dysfunction, unspecified; Z12.5 Encounter for screening for malignant neoplasm of prostate
CPT/HCPCS: 36415; 80048; 80061; 84153

== ENCOUNTER 2024-01-19 01:15 | Outpatient (CLI) | payer MEDICARE, OTHER, SELFPAY ==
--- NOTE | 2024-01-19 07:30 | DI.US_ITS ---
Exam(s) US RENAL EXAM: US RENAL CLINICAL HISTORY: monitoring renal calculi,rt kidney stone,n20.0. TECHNIQUE: Coreas scale, color and spectral Doppler were used. COMPARISON: CT CT ABDOMEN PELVIS W from 01/15/2021 US US RENAL from 02/18/2021 US US RENAL from 02/17/2022 FINDINGS: Right kidney: 12.1cm Echogenicity: Normal Hydronephrosis: No Cyst or mass: No Nephrolithiasis: 5 millimeter calcification lower pole right kidney. Left kidney: 11.2cm Echogenicity: Normal Hydronephrosis: No Cyst or mass: Small left parapelvic cyst near upper pole. Nephrolithiasis: Calcification lower pole left kidney. Bladder:Normal. Prevoid vol:437 cc Postvoid vol:43 cc Prostate mildly enlarged pressing on the base of the bladder. IMPRESSION: Bilateral lower pole nephrolithiasis. Hydronephrosis. Mildly elevated postvoid residual. Mildly enlarged prostate. DATA REPOSITORY:
== END 2024-01-19 01:35 ==
LOC: DI 01:16
PROVIDERS: PCP Family Medicine; Visit Provider Nurse Practitioner Gerontology
DX: N20.0 Calculus of kidney (principal)
CPT/HCPCS: 76770

== ENCOUNTER → 2024-02-26 14:56 | Outpatient (BNVA) | payer MEDICARE, OTHER, SELFPAY | PROVIDERS: PCP Family Medicine; Visit Provider Nurse Practitioner Gerontology | DX: N40.1 Benign prostatic hyperplasia with lower urinary tract symptoms (principal); N13.8 Other obstructive and reflux uropathy; N20.1 Calculus of ureter; N20.0 Calculus of kidney | CPT/HCPCS: 81003; 99213 ==

== ENCOUNTER 2025-01-15 01:58 | Outpatient (CLI) | payer MEDICARE, OTHER, SELFPAY ==
[2025-01-15 14:28] LABS: Hemoglobin A1C 8.4 % (<5.7)
[2025-01-15 14:31] LABS: ALT 24 U/L (16-63); AST 11 U/L (15-37); Albumin 3.9 g/dL (3.4-5.0); Alkaline Phosphatase 67 U/L (46-116); Anion Gap 10.1 mmol/L (3-11); BUN 9 mg/dL (7-18); Bilirubin, Total 2.6 mg/dL (0.2-1.0); CO2 23.9 mmol/L (21.0-32.0); Calcium 9.2 mg/dL (8.5-10.1); Calculated LDL 71 mg/dL (<100); Chloride 105 mmol/L (98-107); Cholesterol 151 mg/dL (<200); Estimated GFR 82.49 (mL/min/1.73m2); Glucose 201 mg/dL (74-106); HDL Cholesterol 54 mg/dL (>or=40); Potassium 4.1 mmol/L (3.5-5.1); Sodium 139 mmol/L (136-145); Total Protein 7.1 g/dL (6.4-8.2); Triglyceride 133 mg/dL (<150)
[2025-01-15 14:37] LABS: COMMENT (LAB VIEW ONLY) 47.61 mg/dL; Microalb ug/mg Crea 18.7 ug/mg Cr
== END 2025-01-15 01:59 | disposition home or self-care (01) ==
LOC: LOS 01:58
PROVIDERS: PCP Family Medicine; Visit Provider Family Medicine
DX: E11.9 Type 2 diabetes mellitus without complications (principal)
CPT/HCPCS: 36415; 80053; 80061; 82043; 82570; 83036

== ENCOUNTER → 2025-02-17 03:42 | Outpatient (CLI) | payer MEDICARE, OTHER, SELFPAY ==
--- NOTE | 2025-02-17 07:00 | DI.US_ITS ---
Exam(s) US RENAL EXAM: US RENAL CLINICAL HISTORY: monitoring calculi,ureterolithiasis,bph with luts,n13.8,n40.1. TECHNIQUE: Coreas scale, color and spectral Doppler were used. COMPARISON: US US RENAL from 01/19/2024 FINDINGS: Renal size in cm: Right: 11.1. Left: 11.1. Echogenicity: Normal. Hydronephrosis: No. Cyst or mass: There are small parapelvic cyst in the left renal pelvis. No follow-up is recommended. Nephrolithiasis: There are bilateral echogenic foci in the kidneys consistent with nonobstructing stones. The largest on the right is in the lower pole and measures 4 mm. There is a 6 mm lower pole echogenic focus in the left kidney. Other findings: None. Bladder:Normal. Ureteral jets: Right: Visualized and unremarkable. Left: Visualized and unremarkable. Prevoid vol:275 cc Postvoid vol:38 cc Prostate: 32 cc Renal color flow: Symmetric and within normal limits. IMPRESSION: 1. Bilateral nonobstructing renal calculi. 2. Mildly enlarged prostate gland with a small postvoid urinary bladder residual. DATA REPOSITORY:
== END ==
PROVIDERS: PCP Family Medicine; Visit Provider Nurse Practitioner Gerontology
DX: N20.2 Calculus of kidney with calculus of ureter (principal); N40.1 Benign prostatic hyperplasia with lower urinary tract symptoms; N13.8 Other obstructive and reflux uropathy
CPT/HCPCS: 76770

== ENCOUNTER 2025-02-18 00:57 | Outpatient (CLI) | payer MEDICARE, OTHER, SELFPAY ==
[2025-02-18 13:10] LABS: Abs Immature Grans 0.02 10^3/uL (0.0-0.06); HCT 47.0 % (40.0-50.0); HGB 15.5 g/dL (13.5-17.5); Immature Grans % 0.3 %; MCH 28.4 pg (27.0-33.0); MCHC 33.0 % (32.0-36.0); MCV 86 fL (80-95); MPV 11.6 fL (8.0-11.0); Platelet Count 151 10^3/uL (130-400); RBC 5.46 10^6/uL (4.36-5.78); RDW 13.2 % (11.8-14.1); RDW-SD 40.9 fL; WBC 6.03 10^3/uL (4.4-10.8)
[2025-02-18 13:55] LABS: Bilirubin, Direct 0.8 mg/dL (<=0.3); Bilirubin, Total 3.00 mg/dL (0.2-1.2)
[2025-02-19 18:38] LABS: PSA, Screening 1.2 ng/mL (<=4.5)
== END 2025-02-18 00:58 | disposition home or self-care (01) ==
LOC: LBO 00:57
PROVIDERS: Family Medicine; PCP Family Medicine; Visit Provider Nurse Practitioner Family
DX: E80.6 Other disorders of bilirubin metabolism (principal); Z12.5 Encounter for screening for malignant neoplasm of prostate
CPT/HCPCS: 36415; 84153; 82247; 82248; 85025

== ENCOUNTER → 2025-02-24 14:40 | Outpatient (BNVA) | payer MEDICARE, OTHER, SELFPAY | PROVIDERS: PCP Family Medicine; Visit Provider Nurse Practitioner Gerontology | DX: N40.1 Benign prostatic hyperplasia with lower urinary tract symptoms (principal); N13.8 Other obstructive and reflux uropathy; N20.2 Calculus of kidney with calculus of ureter; N52.9 Male erectile dysfunction, unspecified | CPT/HCPCS: 99213; 81002 ==

== ENCOUNTER → 2025-03-19 08:10 | Outpatient (CLI) | payer MEDICARE, OTHER, SELFPAY ==
--- NOTE | 2025-03-19 05:45 | DI.US_ITS ---
Exam(s) US ABDOMEN LIMITED EXAM: US ABDOMEN LIMITED CLINICAL HISTORY: E80.6,HYPERBILIRUBINEMIA TECHNIQUE: Ultrasound of the right upper quadrant performed using standard protocol. COMPARISON: CT CT ABDOMEN PELVIS W from 01/15/2021 US US RENAL from 02/17/2025 FINDINGS: LIVER: Normal size 16.6 cm in length. Mildly increased echogenicity. No focal liver lesions are seen. GALLBLADDER: No evidence of cholelithiasis. No evidence of wall thickening. No pericholecystic fluid identified. LEDBETTER'S SIGN: Negative. BILIARY SYSTEM: No intrahepatic or extrahepatic biliary ductal dilation. RIGHT KIDNEY: Normal size. No evidence of renal calculi. No evidence of hydronephrosis. No suspicious renal mass. No cyst identified. PANCREAS: Normal where visualized. ABDOMINAL AORTA AND IVC: Visualized portions normal caliber. ASCITES: None seen. IMPRESSION: Mildly increased liver echogenicity consistent with mild hepatic steatosis. The gallbladder appears normal. No biliary dilatation. DATA REPOSITORY:
== END ==
LOC: DI 08:10
PROVIDERS: PCP Family Medicine; Visit Provider Family Medicine
DX: E80.6 Other disorders of bilirubin metabolism (principal); K76.0 Fatty (change of) liver, not elsewhere classified
CPT/HCPCS: 76705